=== PATIENT | male | born 1945 | race Caucasian/White ===

== ENCOUNTER 2017-08-20 08:02 | Observation (INO) | payer OTHER ==
[~2017-08-20] VITALS: Ht 167.6 cm; Wt 83.9 kg
[~2017-08-20 08:02] MED LIST: CRESTOR5 M1 PO; LOSARTAN POTAS100 M1 PO; MAGNESIUM400 M1 PO; VITAMIN D2000 UNIT PO
[2017-08-20 18:00] VITALS: BP 110/62
--- NOTE | 2017-08-20 18:20 | PN- Student ---
Jacob Joel 08/20/171816: Subjective Subjective: PT states he has 6/10 pain at the incision site on ventral aspect of neck. He does not have any questions or complaints at this time. Family is at BS. Denies: H/A, vision changes, SOB, chest pain, abd pain, n/v/d, paresthesias or syncope. Objective Objective: GEN: Pt lying supine in bed, NAD. A+Ox4. Speaks in quiet voice and with few words HEENT: Island dressing on ventral aspect of neck. CDI. RESP: Fair resp effort 2/2 pain with movement. CTAB CARDIO: RRR, no MRG, S1/S2 audible. cap refill <2 sec. Pulses palpable throughout. ABD: Soft, NTND. No bowel sounds audible. MUSC: 5/5 strength. Bilateral LE + compression devices. Nontender, nonedematous. NEURO: Sensation intact throughout. Results Results: Laboratory Tests 08/20/17 1520: Calcium 10.2, Albumin 3.5 08/20/17 1430: PTH Intact 72.1 08/20/17 1410: PTH Intact 304.9 H 08/20/17 1355: PTH Intact 330.6 H 08/20/17 1341: PTH Intact 410.4 H 08/20/17 1230: PTH Intact 339.9 H Assessment/Plan Assessment: PT is a 72yo caucasain male POD-0 s/p parathryoidectomy. He appears to be recovering well from the procedure. He has not had any PO fluids/food, denies flatus/BM or urination. Patient speaks in only a few words and is very soft spoken. No seymour/No drains. No questions or concerns at this time. Plan: Continue IVF and pain meds as ordered. 9:30 pm Ca+ and albumin levels ordered. OOB ambulation. DVT prophylaxis. Start clear liquid diet as tolerated. PT consult (speech path consult?) Kristel Pino 08/20/172033: Subjective Subjective: some discomfort, bernie clears, no dysphagia, just took pain pill. due to void postop Objective Objective: NECK: incision dressed- cdi. ttp at incision. no ecchymosis, no erythema, no hematoma. Assessment/Plan Plan: Await void, then HL. corrected Ca 10.6 postop, recheck at 9:30pm and 3:30am. OOB. continue clears. no speech tx needed at this time. prn pain meds. titrate o2
--- NOTE | 2017-08-20 20:53 | Admission Core Measures ---
Acute Coronary Syndrome (CM) ACS Core Measures Acute Coronary Syndrome Diagnosis No Congestive Heart Failure (NEW) CHF Core Measures Congestive Heart Failure Diagnosis No Cerebrovascular Accident (NEW) CVA Core Measures CVA/TIA Diagnosis No Venous Thromboembolism VTE Core Vania (View Protocol) VTE Risk Factors Surgery No Mechanical VTE Prophylaxis d/t N/A MechProphylax Ordered No VTE Pharm Prophylaxis d/t Surgical Contraindication Problem List As ranked by this Provider includes Assessment & Plan 1. Hyperparathyroidism HOME MEDS Home Med List Cholecalciferol (Vitamin D3) (Vitamin D) 2,000 UNIT CAPSULE 1 CAP PO DAILY SUPPLEMENT (Reported) Losartan Potassium 100 MG TABLET 1 TAB PO DAILY BP (Reported) Magnesium Oxide (Magnesium) 400 MG CAPSULE 1 CAP PO DAILY SUPPLEMENT ( Reported) Rosuvastatin Calcium (Crestor) 5 MG TABLET 1 TAB PO QPM CHOLESTEROL (Reported )
[2017-08-20] MEDS ORDERED: PERCOCET 5-3251 EACH PO (20:54)
--- NOTE | 2017-08-20 20:57 | Patient Discharge Instructions ---
Discharge Instructions General Discharge Information You were seen/treated for: hyperparathyroidism post-op urinary retention requiring straight cath. You had these procedures: parathyroidectomy Watch for these problems: fever>101, worsening pain, redness/drainage from incision, difficulty swalling, severe swelling or bruising of neck Other wound care: Keep wound clean and dry. You may remove dresing and shower 48hr after surgery. Do not soak wound- no tub baths/swimming. Watch for signs of infections ( redness, drainage) Special Instructions: Please have labs drawn on Wednesday. See attached lab slip. Diet Continue normal diet: Yes Additional DIET Information: Don't forget to take your Vitamin D supplement. Activity Full Activity/No Limits: No Activity Self Limited: Yes Pounds, do NOT lift more than: 5 Other activity limits: No strenuous activity or heavy lifting, pushing or pulling. Avoid repetitive bending. No driving when using pain meds. Acute Coronary Syndrome Inclusion Criteria At DC or during hospital stay patient has or had the following: ACS DIAGNOSIS No Discharge Core Measures Meds if any: Prescribed or Continued at Discharge Meds if any: NOT Prescribed or Continued at Discharge Congestive Heart Failure Inclusion Criteria At DC or during hospital stay patient has or had the following: CHF DIAGNOSIS No Discharge Core Measures Meds if any: Prescribed or Continued at Discharge Meds if any: NOT Prescribed or Continued at Discharge Cerebrovascular accident Inclusion Criteria At DC or during hospital stay patient has or had the following: CVA/TIA Diagnosis No Discharge Core Measures Meds if any: Prescribed or Continued at Discharge Meds if any: NOT Prescribed or Continued at Discharge Venous thromboembolism Inclusion Criteria VTE Diagnosis No VTE Type NONE VTE Confirmed by (Test) NONE Discharge Core Measures - Per Current guidelines, there needs to be overlap - treatment for the first 5 days of Warfarin therapy. - If discharged on Warfarin prior to 5 days of - overlap therapy, the patient will need to be - assessed for post discharge needs including - *Post discharge parental anticoagulation - *Warfarin and/or parental anticoagulation education - *Follow up date to check INR post discharge At least 5 days overlap therapy as Inpatient No Meds if any: Prescribed or Continued at Discharge Note: Overlap Therapy is Warfarin and Anticoagulant Meds if any: NOT Prescribed or Continued at Discharge
[2017-08-20 22:38] VITALS: BP 104/60
[2017-08-21 06:48] VITALS: BP 110/64
[2017-08-21 10:07] LABS: ABSOLUTE BASOPHIL COUNT 0 /CUMM (0.0-0.2); ABSOLUTE EOSINOPHIL COUNT 0.1 /CUMM (0.0-0.7); ABSOLUTE GRANULOCYTE CT 5.7 /CUMM (1.4-6.5); ABSOLUTE LYMPH COUNT 1.9 /CUMM (1.2-3.4); ABSOLUTE MONOCYTE COUNT 0.6 /CUMM (0.10-0.60); BASOPHIL % 0.4 % (0.0-2.0); EOSINOPHIL % 1.4 % (0-5); GRANULOCYTE % 68.8 % (42.2-75.2); MEAN CORPUSCULAR HGB 27.5 PG (27.0-31.0); MEAN CORPUSCULAR HGB CONC 32.5 G/DL (33.0-37.0); MEAN CORPUSCULAR VOLUME 84.6 FL (80.0-94.0); MEAN PLATELET VOLUME 9.2 FL (7.4-10.4); PLATELET COUNT 165 /CUMM (130-400); RBC DISTRIBUTION WIDTH 13.3 % (11.5-14.5); RED BLOOD CELL CT 4.49 /CUMM (4.70-6.10); WHITE BLOOD CELL COUNT 8.3 /CUMM (4.8-10.8)
[2017-08-21 14:34] VITALS: BP 118/62
--- NOTE | 2017-08-21 15:20 | PN- General Surgery ---
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 He may need IV calcium supplementation depending on the level.
--- NOTE | 2017-08-21 15:23 | PN- General Surgery ---
See Addendum Subjective Subjective: Postop parathyroidectomy neck incision is a little sore otherwise tolerating some diet no difficulty breathing no perioral numbness however he has been straight cathed 2 times for urinary retention, he does see a urologist Objective Vital Signs and I&Os I reviewed Vital Signs Date Time Temp Pulse Resp B/P B/P Pulse O2 O2 Flow FiO2 Mean Ox Delivery Rate 08/21 1434 97.9 85 20 118/62 94 08/21 0931 82 130/80 08/21 0648 98.4 80 18 110/64 94 Nasal Cannula 08/21 0000 Nasal 2.0L Cannula 08/20 2237 94 Nasal 2.0L Cannula 08/20 2237 98.1 86 20 104/60 98 Nasal Cannula 08/20 1800 98.0 86 20 110/62 96 Nasal 2.0L Cannula I reviewed Intake & Output 08/21 1600 08/21 0800 08/21 0000 08/20 1600 08/20 0800 08/20 0000 Intake Total 1100 475 Output Total 1000 1250 Balance -1000 -150 475 Intake, IV 600 375 Intake, Oral 500 100 Output, Urine 1000 1250 Patient 185 lb 185 lb Weight Physical Exam: Constitutional: no acute distress no pain Eyes: sclera anicteric ENMT: moist mucous membranes No neck hematoma, Chvostek's negative Cardiovascular: S1-S2 no murmurs no peripheral edema Respiratory: clear to auscultation with normal respiratory effort and no intercostal retractions GI: abdomen soft nontender nondistended Extremities / lymphatics: free range of motion no peripheral edema Skin: no jaundice no rashes warm, nondiaphoretic Psychiatric: mood and affect are appropriate and alert and oriented to person place and time Current Medications: I reviewed Current Medications Sig/Key Start time Last Medication Dose Route Stop Time Status Admin Atorvastatin Calcium 20 MG 1700 08/21 1700 AC PO Atorvastatin Calcium 20 MG 1700 08/20 1700 DC PO Cefazolin Sodium 2 GM Q8H 08/20 2029 DC 08/21 N/A 1 UNIT IV 08/21 458 0412 Cholecalciferol 2,000 IU DAILY 08/21 1000 DC PO Cholecalciferol 2,000 IU DAILY 08/21 1000 AC 08/21 PO 0931 Dextrose/Sodium 1,000 ML Q13H 08/20 1815 DC 08/21 Chloride IV 01/2013 Docusate Sodium 100 MG BID 08/20 2199 AC 08/21 PO 0931 Heparin Sodium 5,000 UNIT Q8 08/20 2199 DC (Porcine) SC Heparin Sodium 5,000 UNIT Q8 08/20 2200 AC 08/21 (Porcine) SC 1520 Hydromorphone HCl 2 MG .STK-MED ONE 08/20 1541 DC IM 08/20 1542 Losartan Potassium 100 MG DAILY 08/21 1000 DC PO Losartan Potassium 100 MG DAILY 08/21 1000 AC 08/21 PO 0931 Magnesium Oxide 400 MG DAILY 08/21 1000 DC PO Magnesium Oxide 400 MG DAILY 08/21 1000 AC 08/21 PO 0931 Morphine Sulfate 2 MG Q4P PRN 08/20 181 AC IV Oxycodone HCl 5 MG Q4 HRS NEEDED PRN 08/20 181 AC PO Oxycodone HCl 10 MG Q4 HRS NEEDED PRN 08/20 1815 AC 08/21 PO 1520 Tamsulosin HCl 0.4 MG DAILY 08/21 1145 AC 08/21 PO 1519 Results Last 48 Hours of Labs: I reviewed Laboratory Tests 08/21 08/21 08/20 08/20 0859 0320 2150 1520 Chemistry Sodium (137 - 145 mmol/L) 140 Potassium (3.5 - 5.1 mmol/L) 3.7 Chloride (98 - 107 mmol/L) 103 Carbon Dioxide (22 - 30 mmol/L) 26 Anion Gap (5 - 16) 11 BUN (9 - 20 mg/dL) 16 Creatinine (0.7 - 1.2 mg/dL) 0.7 Estimated GFR (>60 ml/min) > 60 BUN/Creatinine Ratio (7 - 25 %) 22.9 Calcium (8.4 - 10.2 mg/dL) 9.1 9.7 10.2 Albumin (3.5 - 5.0 g/dL) 3.4 L 3.8 3.5 Hematology CBC w Diff NO MAN DIFF REQ WBC (4.8 - 10.8 /CUMM) 8.3 RBC (4.70 - 6.10 /CUMM) 4.49 L Hgb (14.0 - 18.0 G/DL) 12.3 L Hct (42 - 52 %) 38.0 L MCV (80.0 - 94.0 FL) 84.6 MCH (27.0 - 31.0 PG) 27.5 MCHC (33.0 - 37.0 G/DL) 32.5 L RDW (11.5 - 14.5 %) 13.3 Plt Count (130 - 400 /CUMM) 165 MPV (7.4 - 10.4 FL) 9.2 Gran % (42.2 - 75.2 %) 68.8 Lymphocytes % (20.5 - 51.1 %) 22.5 Monocytes % (1.7 - 9.3 %) 6.9 Eosinophils % (0 - 5 %) 1.4 Basophils % (0.0 - 2.0 %) 0.4 Absolute Granulocytes (1.4 - 6.5 /CUMM) 5.7 Absolute Lymphocytes (1.2 - 3.4 /CUMM) 1.9 Absolute Monocytes (0.10 - 0.60 /CUMM) 0.6 Absolute Eosinophils (0.0 - 0.7 /CUMM) 0.1 Absolute Basophils (0.0 - 0.2 /CUMM) 0 08/20 08/20 08/20 08/20 08/20 1430 1410 1355 1341 1230 Chemistry PTH Intact (18.4 - 80.1 pg/ML) 72.1 304.9 H 330.6 H 410.4 H 339.9 H Assessment/Plan Assessment/Plan Patient has done well for parathyroid surgery his calcium is still normal after several checks will discharge home pending improved urine output also discussed case percent implementation advisor he is to continue his vitamin D supplementation and we will give him a lab slip to check his calcium as an outpatient in the next few days Core Measures Venous Thromboembolism VTE Risk Factors Surgery No Mechanical VTE Prophylaxis d/t N/A MechProphylax Ordered No VTE Pharm Prophylaxis d/t Surgical Contraindication
[2017-08-21 22:11] VITALS: BP 120/62
[2017-08-22 06:53] VITALS: BP 140/70
[2017-08-22] MEDS ORDERED: DOCUSATE SODIU100 M3 PO (09:05)
[2017-08-22] MEDS ORDERED: FLOMAX0.4 M1 PO (09:05)
--- NOTE | 2017-08-22 09:13 | PN- General Surgery ---
Subjective Subjective: No complaints. Pain controlled. Reports urinated 300 mls this morning, without need for straight caths overnight. Flomax started yesterday, and reportedly sees "yearly". Right arm hematoma stable, without paresthesias. He Denies dizziness. No shortness of breath. No chest pains. Tolerating diet. Objective Vital Signs and I&Os Vital Signs Date Time Temp Pulse Resp B/P B/P Pulse O2 O2 Flow FiO2 Mean Ox Delivery Rate 08/22 0715 98.6 08/22 0653 99.8 84 18 140/70 93 Nasal Cannula 08/21 2211 98.1 89 20 120/62 92 Nasal Cannula 08/21 2151 Nasal 2.0L Cannula 08/21 1434 97.9 85 20 118/62 94 08/21 0931 82 130/80 Intake & Output 08/22 1600 08/22 0800 08/22 0000 08/21 1600 08/21 0800 08/21 0000 Intake Total 486 601 7574 1100 475 Output Total 4934 819 9335 1250 Balance -800 -400 175 -150 475 Intake, IV 375 600 375 Intake, Oral 557 597 9456 500 100 Output, Urine 1037 070 9303 1250 Patient 185 lb Weight Physical Exam: General - alert & oriented x 3. comfortable. no acute distress. Neck - dressing c/d/i. no hematoma. no drain. Lungs - clear bilaterally. no w/r/r. Cardiac - s1s2. reg. Abdomen - soft. nontender. Extremities - warm bilaterally. right arm with some bruising but nvi. calves soft and nontender b/l. Current Medications: Current Medications Sig/Key Start time Last Medication Dose Route Stop Time Status Admin Atorvastatin Calcium 20 MG 1700 08/21 1700 AC 08/21 PO 1706 Cholecalciferol 2,000 IU DAILY 08/21 1000 DC PO Cholecalciferol 2,000 IU DAILY 08/21 1000 AC 08/21 PO 0931 Dextrose/Sodium 1,000 ML Q13H 08/20 1815 DC 08/21 Chloride IV 08/21 2013 0608 Docusate Sodium 100 MG BID 08/20 2200 AC 08/21 PO 211 Heparin Sodium 5,000 UNIT Q8 08/20 2200 AC 08/22 (Porcine) SC 0648 Losartan Potassium 100 MG DAILY 08/21 1000 DC PO Losartan Potassium 100 MG DAILY 08/21 1000 AC 08/21 PO 0931 Magnesium Oxide 400 MG DAILY 08/21 1000 DC PO Magnesium Oxide 400 MG DAILY 08/21 1000 AC 08/21 PO 0931 Morphine Sulfate 2 MG Q4P PRN 08/20 1814 AC IV Oxycodone HCl 5 MG Q4 HRS NEEDED PRN 08/20 181 AC PO Oxycodone HCl 10 MG Q4 HRS NEEDED PRN 08/20 181 AC 08/21 PO 2110 Tamsulosin HCl 0.4 MG DAILY 08/21 1145 AC 08/21 PO 1519 Results Last 48 Hours of Labs: Laboratory Tests 08/21 08/21 08/20 08/20 0859 0320 2150 1520 Chemistry Sodium (137 - 145 mmol/L) 140 Potassium (3.5 - 5.1 mmol/L) 3.7 Chloride (98 - 107 mmol/L) 103 Carbon Dioxide (22 - 30 mmol/L) 26 Anion Gap (5 - 16) 11 BUN (9 - 20 mg/dL) 16 Creatinine (0.7 - 1.2 mg/dL) 0.7 Estimated GFR (>60 ml/min) > 60 BUN/Creatinine Ratio (7 - 25 %) 22.9 Calcium (8.4 - 10.2 mg/dL) 9.1 9.7 10.2 Albumin (3.5 - 5.0 g/dL) 3.4 L 3.8 3.5 Hematology CBC w Diff NO MAN DIFF REQ WBC (4.8 - 10.8 /CUMM) 8.3 RBC (4.70 - 6.10 /CUMM) 4.49 L Hgb (14.0 - 18.0 G/DL) 12.3 L Hct (42 - 52 %) 38.0 L MCV (80.0 - 94.0 FL) 84.6 MCH (27.0 - 31.0 PG) 27.5 MCHC (33.0 - 37.0 G/DL) 32.5 L RDW (11.5 - 14.5 %) 13.3 Plt Count (130 - 400 /CUMM) 165 MPV (7.4 - 10.4 FL) 9.2 Gran % (42.2 - 75.2 %) 68.8 Lymphocytes % (20.5 - 51.1 %) 22.5 Monocytes % (1.7 - 9.3 %) 6.9 Eosinophils % (0 - 5 %) 1.4 Basophils % (0.0 - 2.0 %) 0.4 Absolute Granulocytes (1.4 - 6.5 /CUMM) 5.7 Absolute Lymphocytes (1.2 - 3.4 /CUMM) 1.9 Absolute Monocytes (0.10 - 0.60 /CUMM) 0.6 Absolute Eosinophils (0.0 - 0.7 /CUMM) 0.1 Absolute Basophils (0.0 - 0.2 /CUMM) 0 08/20 08/20 08/20 08/20 08/20 1430 1410 1355 1341 1230 Chemistry PTH Intact (18.4 - 80.1 pg/ML) 72.1 304.9 H 330.6 H 410.4 H 339.9 H Assessment/Plan Assessment/Plan This 72 year old male with hx htn, hld, ?bph, is POD#2 s/p RLL parathyroidectomy , post-op urinary retention requiring straight catheterization x 2 - which seems better with starting flomax yesterday tolerating diet pain controlled continue flomax IST oob/ambulating well extended observation due to urinary issues yesterday, which have improved with flomax d/c home today prescription given to check serum calcium / albumin tomorrow prescription given to continue flomax and f/u in 1-2 weeks will d/w Core Measures Venous Thromboembolism VTE Risk Factors Surgery No Mechanical VTE Prophylaxis d/t N/A MechProphylax Ordered No VTE Pharm Prophylaxis d/t Surgical Contraindication
[2017-08-22 09:56] VITALS: BP 140/70
--- NOTE | 2017-08-25 19:07 | Operative Report ---
Operative/Inv Procedure Report Surgery Date: 08/20/17 Name of Procedure: excision of right inferior parathyroid gland (adenoma) using intraoperative PTH assay Pre-Operative Diagnosis: primary HPTH ism Post-Operative Diagnosis: same Estimated Blood Loss: scant Surgeon/Road Supervisor Of Engines: Marly LAWSON,Matthew BOLANOS Anesthesia: general endotracheal tube Operative/Procedure Note Note: We had gone over preoperative imaging sestamibi and ultrasound describing a 1.8 cm mass. Patient was placed on the OR table supine, over the thyroid bar, after successful induction of general anesthesia and the timeouts, and setting up the NIMS electrodes for monitoring, the patient's neck from chin to chest were clipped prepped and draped in the usual sterile fashion. A PTH level was drawn at this time. We had already marked a skin crease near the cricoid in Same Day, and then infiltrated local anesthetic and then made this incision with a 15 blade, extending between the medial borders of the sternocleidomastoid muscles, and this incision was slightly off centeri favoring the right. The incision was deepened through the subcutaneous fat and subplatysmal flaps, preserving the underlying anterior jugular veins, were made superiorly to the thyroid cartilage and inferiorly not quite to the sternal notch. The midline was identified between the strap muscles and opened vertically and then using an Allis clamp first, the sternohyoid and then the sternal thyroid muscles were and then retracted laterally to the right, off the thyroid towards the carotid sheath. At that deep lateral extent we searched for the parathyroid gland I saw a rounded nodule surrounded by fat and was not that large clamps at the level of the inferior pole on the right I dissected circumferentially preserving the blood supply and then before excising it we had anesthesia draw a PTH, then we excised it and sent it to pathology, and mingo another level. So far the numbers were between 330 and 410. The pathologist called in to say it looked grossly like fat which correlated with the number not dropping so we persisted the search and found an obvious adenoma deeper along the tracheoesophageal groove, with a single pedicle, feeling confident that this was the one, we excised it sending to pathology and mingo another lab 10 minutes later, which came back 72, at least an 80% drop, so we were done. Note that we kept the dissection close to the gland avoiding exposing touching the recurrent nerve . We checked for hemostasis and then closed by first reapproximating the strap muscles over the trachea in the middle paying care not to injure those jugular veins on either side, and then the platysma was reapproximated with a running 3-0 Vicryl suture as well, then the skin was reapproximated with a running subcuticular 4-0 Biosyn suture followed by Mastisol Steri-Strips Telfa and Tegaderm. Estimated blood loss was minimal lap and sponge counts were correct wound expectancy was clean, IV fluids crystalloid, complications none, patient tolerated the procedure well was awakened extubated and returned to the recovery room in satisfactory condition where once more awake, was able to phonate without any significant hoarseness.
== END 2017-08-22 10:42 ==
LOC: STS 08:02 → PACUH 15:00 → ENRESERV 15:58 → ENTRNSPT 17:01 → CMPTRNSPT 17:34 → 2NA 17:38
PROVIDERS: Physician Assistant Surgical
DX: E21.0 Primary hyperparathyroidism (principal); I10 Essential (primary) hypertension; G47.33 Obstructive sleep apnea (adult) (pediatric); R42 Dizziness and giddiness
CPT/HCPCS: 1255; 1328; 1425; 1530; 1748; 36415; 82436; 88305; 96372; 96374; C9399; G0378; J0131; J0690; J1644; J2250; J3490; J7042

== ENCOUNTER 2018-01-01 08:24 | Observation (INO) | payer OTHER ==
[~2018-01-01] VITALS: Ht 170.2 cm; Wt 83.9 kg
[~2018-01-01 08:24] MED LIST changes: +DOCUSATE SODIU100 M3 PO; +FLOMAX0.4 M1 PO; +PERCOCET 5-3251 EACH PO
--- NOTE | 2018-01-01 08:51 | ED AMS/SEIZURE/WEAK/DIZZY ---
History of Present Illness General Chief Complaint: General Adult Stated Complaint: TICK BITE/? FB STILL REMAINING/NAUSEA/WEAKNESS Source: patient, family, old records Exam Limitations: no limitations Vital Signs & Intake/Output Vital Signs & Intake/Output Vital Signs Date Time Temp Pulse Resp B/P B/P Pulse O2 O2 Flow FiO2 Mean Ox Delivery Rate 01/01 1019 98.0 64 18 132/70 97 Room Air 01/01 0833 97.1 60 18 161/74 96 Room Air Allergies Coded Allergies: NO KNOWN ALLERGIES (08/19/17) Reconcile Medications Cholecalciferol (Vitamin D3) (Vitamin D) 2,000 UNIT CAPSULE 1 CAP PO DAILY SUPPLEMENT (Reported) Docusate Sodium 100 MG CAPSULE 100 MG PO BID PRN CONSTIPATION stool softener. hold for loose bms. Losartan Potassium 100 MG TABLET 1 TAB PO DAILY BP (Reported) Magnesium Oxide (Magnesium) 400 MG CAPSULE 1 CAP PO DAILY SUPPLEMENT ( Reported) Rosuvastatin Calcium (Crestor) 5 MG TABLET 1 TAB PO QPM CHOLESTEROL (Reported ) Tamsulosin HCl (Flomax) 0.4 MG CAP.ER.24H 0.4 MG PO DAILY urinary retention / bph Triage Note: PT STATES THAT HE HAS A HISTORY OF VERTIGO AND THAT HE WOKE THIS AM HE WAS DIZZY/NAUSEA /SWEATY, DENIES CP/SOB, ALSO STATES THAT HE HAD A TICK ON HIM LAST PM AND HE REMOVED IT BUT THINKS THE HEAD IS STILL IN Triage Nurses Notes Reviewed? yes HPI: Patient woke up this morning and just felt off balance. Patient denies any room spinning dizziness however he does have a history of vertigo. Patient denies any nausea. Patient states that he fell in a tent pole on the [place] was a fall. Patient denies any chest pain or palpitations. There is no shortness of breath. There is no lightheadedness. Of note patient noticed a tick on him 2 weeks ago and he went to walk in [place] and was given 200 mg doxycycline. Patient noticed another tick on him yesterday. His pulled it out however the head remained. Past History Travel History Traveled to [place] past 21 day No Medical History Any Pertinent Medical History? see below for history Neurological: vertigo Cardiovascular: hypertension, HYPERLIPIDEMIA Respiratory: SLEEP APNEA Gastrointestinal: R INGUINAL HERNIA REPAIR History of MRSA: No History of VRE: No History of CDIFF: No Surgical History Surgical History: non-contributory Psychosocial History What is your primary language Puerto Rican Tobacco Use: Never used ETOH Use: denies use Illicit Drug Use: denies illicit drug use Family History Hx Contributory? No Review of Systems Review of Systems Constitutional: Reports: no symptoms. EENTM: Reports: no symptoms. Respiratory: Reports: no symptoms. Cardiovascular: Reports: no symptoms. GI: Reports: no symptoms. Genitourinary: Reports: no symptoms. Musculoskeletal: Reports: no symptoms. Skin: Reports: no symptoms. Neurological/Psychological: Reports: see HPI. Hematologic/Endocrine: Reports: no symptoms. Immunologic/Allergic: Reports: no symptoms. All Other Systems: Reviewed and Negative Physical Exam Physical Exam General Appearance: well developed/nourished, alert, awake, mild distress Head: atraumatic, normal appearance Eyes: Bilateral: PERRL, EOMI. Ears, Nose, Throat: normal pharynx, normal ENT inspection, hearing grossly normal Neck: normal inspection, supple, full range of motion Respiratory: normal breath sounds, chest non-tender, no respiratory distress, lungs clear Cardiovascular: normal peripheral pulses, bradycardia Gastrointestinal: normal bowel sounds, soft, non-tender, no organomegaly Back: normal inspection, normal range of motion Extremities: normal range of motion, hEAD TICK REMAINED BEHIND LEFT KNEE Neurologic/Psych: no motor/sensory deficits, awake, alert, oriented x 3, normal mood/affect Skin: intact, normal color, warm/dry Core Measures ACS in differential dx? No CVA/TIA Diagnosis No Sepsis Present: No Sepsis Focused Exam Completed? No Progress Differential Diagnosis: arrythmia, benign positional vertigo, drug intoxication, electrolyte imbalance, labrynthitis, Meniere's disease Plan of Care: Orders Procedure Date/time Status Heart Healthy Diet 01/[address] in observation 01/01 1138 Active ED Holding Orders 01/01 1138 Active Vital Signs 01/01 1138 Active Code Status 01/01 1138 Active Add-on Test (ER Only) 01/01 1135 Active Telemetry/Septic Pump Truck Driver 01/01 0851 Active TROPONIN LEVEL 01/01 0851 Complete COMPREHENSIVE METABOLIC PANEL 01/01 0851 Complete CBC WITHOUT DIFFERENTIAL 01/01 0851 Complete EKG 01/01 0851 Active Current Medications Sig/Key Start time Last Medication Dose Stop Time Status Admin Sodium Chloride 1,000 ML BOLUS ONE 01/01 1045 AC 01/01 (Normal Saline 0.9%) 01/01 1144 1047 Laboratory Tests 01/01/18 0909: Anion Gap 9, Estimated GFR > 60, BUN/Creatinine Ratio 25.7 H, Glucose 163 H, Calcium 9.1, Total Bilirubin 0.6, AST 38, ALT 34, Alkaline Phosphatase 103, Troponin I < 0.01, Total Protein 6.5, Albumin 3.8, Globulin 2.7, Albumin/ Globulin Ratio 1.4, CBC w Diff NO MAN DIFF REQ, RBC 5.06, MCV 83.1, MCH 27.6, MCHC 33.2, RDW 14.1, MPV 9.0, Gran % 70.7, Lymphocytes % 22.3, Monocytes % 5.3, Eosinophils % 1.3, Basophils % 0.4, Absolute Granulocytes 4.7, Absolute Lymphocytes 1.5, Absolute Monocytes 0.3, Absolute Eosinophils 0.1, Absolute Basophils 0 Initial ED EKG: SINUS THIERNO, NO STT CHANGES Prior EKG: changed Rhythm Strip: sinus bradycardia Comments: His showed a picture of the tick and it is much larger than the nymph stage. The rest of the tick was removed with tweezers. Dr. Ross has been counseled to. He recommends the patient to remain in the hospital and he will consult. Departure Departure Disposition: STILL A PATIENT Condition: Stable Clinical Impression Primary Impression: Symptomatic bradycardia Referrals: Magnus LAWSON,Pedrito Reyes (PCP/Family) Departure Forms: Customer Survey General Discharge Information Admission Note Documentation of Exam: Documentation of any treatments & extenuating circumstances including Concerns Regarding Discharge (functional status, medication knowledge or non-compliance, living conditions, etc.) that warrant an admission rather than observation: Observation Note Spoke With: Susan Lutz MD Physician Advisor Notified: CHRIS LAWSON,NANNETTE Reyes Place Patient In: Non-ED OBS Care Area Rationale for Observation: My rational for observation is as follows [telemetry monitoring, cardiology evaluation and further treatment, serial enzymes].
[2018-01-01 09:34] LABS: ABSOLUTE BASOPHIL COUNT 0 /CUMM (0.0-0.2); ABSOLUTE EOSINOPHIL COUNT 0.1 /CUMM (0.0-0.7); ABSOLUTE GRANULOCYTE CT 4.7 /CUMM (1.4-6.5); ABSOLUTE LYMPH COUNT 1.5 /CUMM (1.2-3.4); ABSOLUTE MONOCYTE COUNT 0.3 /CUMM (0.10-0.60); BASOPHIL % 0.4 % (0.0-2.0); EOSINOPHIL % 1.3 % (0-5); GRANULOCYTE % 70.7 % (42.2-75.2); HEMATOCRIT 42.1 % (42-52); MEAN CORPUSCULAR HGB 27.6 PG (27.0-31.0); MEAN CORPUSCULAR HGB CONC 33.2 G/DL (33.0-37.0); MEAN CORPUSCULAR VOLUME 83.1 FL (80.0-94.0); PLATELET COUNT 183 /CUMM (130-400); RBC DISTRIBUTION WIDTH 14.1 % (11.5-14.5); RED BLOOD CELL CT 5.06 /CUMM (4.70-6.10); WHITE BLOOD CELL COUNT 6.6 /CUMM (4.8-10.8)
--- NOTE | 2018-01-01 12:14 | History & Physical ---
Itzel LAWSON,[facility] 01/01/18 1214: General Information and HPI MD Statement: I have seen and personally examined SAM MOORE and documented this H&P. The patient is a 72 year old M who presented with a patient stated chief complaint of [dizziness]. 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 Patient was on regular state of health up to yesterday, when he woke up this morning he felt very dizzy, was unable to go to the restroom and looked pale, diaphoresis, nausea but no vomiting. The reported that she never saw him in this way and decided to bring him to ED for evaluation. Patient reported tick bite yesterday on the posterior surface of left knee, tried to remove it with soap and alcohol swab and finally pulled it out however the head remained. Patient also had a tick bite last week and went to a walk-in clinic and was given doxycycline 2 pulse 1 time, had 2 ticks bites last year and was treated with doxycycline however never was tested for Lyme titer. Patient denied any chest pain, palpitation, shortness of breath, weakness, numbness, blurred vision. Denied any skin rash this time however reported ring lesion last year. Patient denied any new medication. Patient follow-up with Dr. Mayen for annual checkup no urological disease, Dr. Wood for history of palpitation, Dr. hammonds for a parathyroid, ophthalmology, Dr. Jeronimo for sleep apnea and primary care physician is Dr. Agudelo. Allergies/Medications Allergies: Coded Allergies: NO KNOWN ALLERGIES (08/19/17) Home Med list Cholecalciferol (Vitamin D3) (Vitamin D) 2,000 UNIT CAPSULE 1 CAP PO DAILY SUPPLEMENT (Reported) Losartan Potassium 100 MG TABLET 1 TAB PO DAILY BP (Reported) Magnesium Oxide (Magnesium) 400 MG CAPSULE 1 CAP PO DAILY SUPPLEMENT ( Reported) Meclizine HCl 12.5 MG TABLET 12.5 MG PO TID PRN Vertigo Rosuvastatin Calcium (Crestor) 5 MG TABLET 1 TAB PO QPM CHOLESTEROL (Reported ) Past History Travel History Traveled to [place] past 21 day No Medical History Neurological: vertigo Cardiovascular: hypertension, HYPERLIPIDEMIA Respiratory: SLEEP APNEA Gastrointestinal: R INGUINAL HERNIA REPAIR History of MRSA: No History of VRE: No History of CDIFF: No Surgical History Surgical History: non-contributory Past Family/Social History Psychosocial History Where do you live? Home Who Do You Live With? spouse Services at Home: None Smoking Status: Former Smoker ETOH Use: 2 glasses of wine daily Illicit Drug Use: denies illicit drug use Review of Systems Review of Systems Constitutional: Reports: see HPI. EENTM: Denies: blurred vision, double vision. Cardiovascular: Denies: chest pain, palpitations. Respiratory: Denies: cough, short of breath. GI: Reports: nausea. Denies: abdominal pain, constipation, vomiting. Genitourinary: Denies: dysuria, hematuria. Musculoskeletal: Denies: back pain, joint pain, joint swelling, muscle pain, muscle stiffness, neck pain. Skin: Denies: rash. Neurological/Psychological: Denies: ataxia, confusion, dementia, headache, numbness. Hematologic/Endocrine: Denies: bleeding. Exam & Diagnostic Data Last 24 Hrs of Vital Signs/I&O Vital Signs Date Time Temp Pulse Resp B/P B/P Pulse O2 O2 Flow FiO2 Mean Ox Delivery Rate 01/01 1341 98.2 57 20 150/90 96 Room Air 01/01 1251 98.0 58 20 145/68 98 Room Air 01/01 1019 98.0 64 18 132/70 97 Room Air 01/01 0833 97.1 60 18 161/74 96 Room Air Intake & Output 01/01 1600 01/01 0800 01/01 0000 Intake Total 1000 Output Total Balance 1000 Intake, IV 1000 Patient 83.915 kg Weight Physical Exam General Appearance Alert, Oriented X3, Cooperative, No Acute Distress Skin No Rashes, No Breakdown, erythema at the tick bite site on the posterior serface of left knee Skin Temp/Moisture Exam: Warm/Dry HEENT Atraumatic, PERRLA, EOMI, Mucous Membr. moist/pink Neck Supple Cardiovascular Regular Rate, Normal S1, Normal S2, No Murmurs Lungs Clear to Auscultation, Normal Air Movement Abdomen Normal Bowel Sounds, Soft, No Tenderness Neurological Normal Speech, Strength at 5/5 X4 Ext, Normal Tone, Sensation Intact, Cranial Nerves 3-12 NL Extremities No Clubbing, No Cyanosis, No Edema, Normal Pulses Assessment/Plan Assessment: Patient is 72-year-old male with past medical history significant for hypertension, obstructive sleep apnea on CPAP, parathyroid adenoma status post right inferior parathyroidectomy, vertigo who presented to ED with chief complain of dizziness associated with nausea, diaphoresis this morning. Patient was found to have heart rate of 60, lowest 40-45 bpm. Patient continues to report dizziness on standing. Dizziness can be attributed to bradycardia however given the sudden onset of his symptoms we want to rule out other causes specifically TIA of posterior circulation. Lyme disease should be ruled out given history of multiple tick bites and ring lesion last year. Also in the setting of parathyroidectomy would like to rule out any hypothyroidism. Plan Observe on telemetry floor Vitals every shift Repeat troponin and EKG Obtain Lyme titer Orthostatic measurement CTA head and neck TSH Cardiac consultation Echocardiogram PT evaluation Bedside swallowing evaluation was done Start diet heart healthy DVT prophylaxis Lovenox Code full As Ranked By This Provider Problem List: 1. Vertigo 2. Symptomatic bradycardia Core Measures/Misc (04/11) Acute Coronary Syndrome ACS Diagnosis: No Congestive Heart Failure Congestive Heart Failure Diagnosis No Cerebrovascular Accident CVA/TIA Diagnosis: No VTE (View Protocol) VTE Risk Factors Age>40 No Mechanical VTE Prophylaxis d/t N/A MechProphylax Ordered No VTE Pharm Prophylaxis d/t NA PharmProphylax ordered Sepsis (View protocol) Sepsis Present: No If YES complete Sepsis Event Note If YES complete Sepsis Event Note Observation Initial Note - I have personally examined SAM MOORE on 01/01/18 at 1431. The disposition of SAM MOORE is uncertain at this time and before a determination can be made, he requires a period of observation for the following reasons [dizziness, bradycardia] Susan Lutz MD 01/01/18 1409: Core Measures/Misc (04/11) Sepsis (View protocol) If YES complete Sepsis Event Note If YES complete Sepsis Event Note Attending MD Review Statement Attending Statement Attending MD Statement: examined this patient, discuss w/resident/PA/CORRECTIONAL CAPTAIN, agreed w/resident/PA/CORRECTIONAL CAPTAIN, reviewed EMR data (avail), discussed with nursing, discussed with case mgmt, amended to note Attending Assessment/Plan: 72-year-old male history of sleep apnea, hypertension recently diagnosed with vertigo a few weeks ago presented to the emergency room with sudden onset of dizziness and unsteady gait. Arrived emergency room hemodynamically stable. In the ER he was found to be in sinus bradycardia. Was referred to the medical service for further management. He is alert and oriented 3. Conversant appropriately. Reports that in October he had sudden onset of dizziness with sensation of the room spinning. He was seen by his primary care provider referred for physical therapy. Reports her symptoms improved. Symptoms began suddenly today. He denies any tinnitus. Denies any spinning sensation but states that he is very unsteady on his feet and feels like he is going to fall. Denies chest pain. Denies palpitations. Denies shortness of breath. He has history of repeated tick bites including recently. Apparently a tick was removed from his body today. General appearance: Well-developed and not in any acute distress. HEENT: Anicteric, no pallor, pupils equal and reactive. Mild horizontal nystagmus. Neck: Supple with no jugular venous distention. Heart: S1-S2 regular with no audible murmur. Lungs: Adequate and symmetric air entry bilaterally with no added sounds. Abdomen: Nondistended with normal bowel sounds. Soft, nontender with no palpable masses. Extremities: No pedal edema. No cyanosis. Skin: Intact Neurologic: No gross focal neurologic deficit other than nystagmus noted above. Problems: 1. Sudden onset dizziness 2. Bradycardia 3. History of hypertension. Plan: -Observation status on the telemetry unit. -In view of his nystagmus and sudden onset of symptoms would recommend CT angiogram to rule out posterior circulation infarct. Does not appear that His dizziness is related to his bradycardia. -Check orthostatic vitals. -Begin patient on meclizine 12.5 g orally 3 times a day. Physical therapy consultation. -Obtain echo cardiac cardiology consultation. Check Lyme serology. Check TSH level.
[2018-01-01 13:41] VITALS: BP 150/90
--- NOTE | 2018-01-01 14:44 | Cons- Cardiology ---
General Information and HPI Consulting Request Date of Consult: 01/01/18 Requested By: Susan Lutz MD Reason for Consult: Dizziness and bradycardia. Source of Information: patient, old records Exam Limitations: no limitations History of Present Illness: Mr. Antione Melendez is a 72-year-old male with a history of hypertension, dyslipidemia, obstructive sleep apnea on CPAP, parathyroid adenoma s/p right inferior parathyroidectomy, and vertigo who presented to the ED with complaints of dizziness associated with nausea and diaphoresis this morning. Mr. Melendez reports being in his usual state of health yesterday, but when he awoke this a.m. he felt very dizzy, was very unsteady, unable to go to the bathoom and, according to his , appeared pale and diaphoretic. This was unlike his vertigo and that there was no "spinning" of the objects around him, which he typically experiences with bouts of vertigo. Being alarmed, his brought him to the ED for evaluation and management. The patient discovered a tick yesterday on the posterior aspect of his left knee. His made several attempts to remove it, but eventually pulled it off leaving head remnants. He also discovered a tick last week and sought evaluation at a walk-in clinic where he was prescribed doxycycline. He also reported discovering two ticks and a rash last year which were also treated with doxycycline. He states he was not tested for Lyme disease. He denies any recent chest discomfort, palpitation, shortness of breath, lower extremity edema, skin rash, fever, chills, etc. He has been evaluated for what he describes as heart "vibrations" with Holter monitoring, event monitoring, etc. which he states have been "negative". Other than the antibiotic, he denies any new medications and/or changes in dosages of the medications he has been on chronically. In the ED the tick remnants were removed and he was observed to be in sinus bradycardia. Allergies/Medications Allergies: Coded Allergies: NO KNOWN ALLERGIES (08/19/17) Home Med List: Cholecalciferol (Vitamin D3) (Vitamin D) 2,000 UNIT CAPSULE 1 CAP PO DAILY SUPPLEMENT (Reported) Losartan Potassium 100 MG TABLET 1 TAB PO DAILY BP (Reported) Magnesium Oxide (Magnesium) 400 MG CAPSULE 1 CAP PO DAILY SUPPLEMENT ( Reported) Meclizine HCl 12.5 MG TABLET 12.5 MG PO TID PRN Vertigo Rosuvastatin Calcium (Crestor) 5 MG TABLET 1 TAB PO QPM CHOLESTEROL (Reported ) Review of Systems Review of Systems: A 14 point system review was obtained was noncontributory, other than as above. Past History Travel History Traveled to [place] past 21 day No Medical History Blood Transfusion Hx: No Neurological: vertigo EENT: NONE Cardiovascular: hypertension, HYPERLIPIDEMIA Respiratory: SLEEP APNEA Gastrointestinal: R INGUINAL HERNIA REPAIR Hepatic: NONE Renal: NONE Musculoskeletal: NONE Psychiatric: NONE Endocrine: hyperparathyroidism Blood Disorders: NONE Cancer(s): NONE PETROLEUM PLANT OPERATOR/Reproductive: NONE Surgical History Surgical History: non-contributory Psychosocial History Where Do You Live? Home Who Do You Live With? spouse Services at Home: None Smoking Status: Former Smoker ETOH Use: 2 glasses of wine daily Illicit Drug Use: denies illicit drug use Exam & Diagnostic Data Vital Signs and I&O Vital Signs Date Time Temp Pulse Resp B/P B/P Pulse O2 O2 Flow FiO2 Mean Ox Delivery Rate 01/01 1341 98.2 57 20 150/90 96 Room Air 01/01 1251 98.0 58 20 145/68 98 Room Air 01/01 1019 98.0 64 18 132/70 97 Room Air 01/01 0833 97.1 60 18 161/74 96 Room Air Intake & Output 01/01 1600 01/01 0800 / 0000 12/31 1600 12/31 0800 12/31 0000 Intake Total 1000 Output Total Balance 1000 Intake, IV 1000 Patient 185 lb Weight Physical Exam: Well-developed, well-nourished elderly male no acute distress. Vital signs: See above. HEENT: Normocephalic, atraumatic, EOMI, slightly dry mucous membranes. Neck: No JVD, no bruits. Lungs: Clear to auscultation bilaterally. Heart: S1, S2 with a soft grade 1/6 systolic murmur. No gallop or rub. PMI fifth ICS MCL. Abdomen: Soft, nontender, positive bowel sounds. Extremities: No edema. Erythema posterior aspect left knee. Labs/Bib Results: Laboratory Tests 01/01 909 Chemistry Sodium (137 - 145 mmol/L) 142 Potassium (3.5 - 5.1 mmol/L) 4.0 Chloride (98 - 107 mmol/L) 106 Carbon Dioxide (22 - 30 mmol/L) 26 Anion Gap (5 - 16) 9 BUN (9 - 20 mg/dL) 18 Creatinine (0.7 - 1.2 mg/dL) 0.7 Estimated GFR (>60 ml/min) > 60 BUN/Creatinine Ratio (7 - 25 %) 25.7 H Glucose (65 - 99 mg/dL) 163 H Calcium (8.4 - 10.2 mg/dL) 9.1 Magnesium (1.6 - 2.3 mg/dL) 2.0 Total Bilirubin (0.2 - 1.3 mg/dL) 0.6 AST (17 - 59 U/L) 38 ALT (21 - 72 U/L) 34 Alkaline Phosphatase (< 127 U/L) 103 Troponin I (<0.11 ng/ml) < 0.01 Total Protein (6.3 - 8.2 g/dL) 6.5 Albumin (3.5 - 5.0 g/dL) 3.8 Globulin (1.9 - 4.2 gm/dL) 2.7 Albumin/Globulin Ratio (1.1 - 2.2 %) 1.4 TSH (0.270 - 4.200 uIU/mL) 1.940 Hematology CBC w Diff NO MAN DIFF REQ WBC (4.8 - 10.8 /CUMM) 6.6 RBC (4.70 - 6.10 /CUMM) 5.06 Hgb (14.0 - 18.0 G/DL) 13.9 L Hct (42 - 52 %) 42.1 MCV (80.0 - 94.0 FL) 83.1 MCH (27.0 - 31.0 PG) 27.6 MCHC (33.0 - 37.0 G/DL) 33.2 RDW (11.5 - 14.5 %) 14.1 Plt Count (130 - 400 /CUMM) 183 MPV (7.4 - 10.4 FL) 9.0 Gran % (42.2 - 75.2 %) 70.7 Lymphocytes % (20.5 - 51.1 %) 22.3 Monocytes % (1.7 - 9.3 %) 5.3 Eosinophils % (0 - 5 %) 1.3 Basophils % (0.0 - 2.0 %) 0.4 Absolute Granulocytes (1.4 - 6.5 /CUMM) 4.7 Absolute Lymphocytes (1.2 - 3.4 /CUMM) 1.5 Absolute Monocytes (0.10 - 0.60 /CUMM) 0.3 Absolute Eosinophils (0.0 - 0.7 /CUMM) 0.1 Absolute Basophils (0.0 - 0.2 /CUMM) 0 ESR Westergren (0 - 10 MM) Pending Serology Lyme Disease Antibody Pending Diagnostic Data EKG Results 01/01/18: Sinus bradycardia at 54 bpm, LAD, IVCD, cannot exclude old ASMI. Slower rate when compared to previous tracing from 08/19/2017. Other Results CT head, CTA head/neck 01/01/2018: CT head: No intracranial hemorrhage or large acute infarction. CTA neck: Mild atheromatous changes at the carotid bifurcations resulting in less than 50% stenosis by NASCET criteria. CTA head: No large vessel occlusion or significant stenosis within the intracranial circulation. Assessment/Plan Assessment/Plan [id number] w/ hx HTN, HLD, KAE on CPAP, parathyroid adenoma s/p R inferior parathyroidectomy, & vertigo who presented to ED w/ c/o dizziness assoc w/ nausea, diaphoresis this a.m. w/ a history of recent tick bites and evidence of SB on telemetry in the ED & on and his 12-lead ECG. On review of previous electrocardiograms, it was noted that on a preoperative ( cataract surgery) 12-lead ECG from 04/15/2007, Mr. Melendez was in sinus bradycardia with a heart rate of 48 bpm without any other changes. Reasonable to place on telemetry observation, but he has clearly had bradycardia in the past without associated symptoms. Reasonable to evaluate for other potential etiologies for his sinus bradycardia, which are typically divided into intrinsic and extrinsic causes. Intrinsic causes include: Idiopathic degenerative disorders of the conduction system, chronic ischemia, hypertensive heart disease, cardiomyopathy, inflammatory processes, collagen vascular disease, viral myocarditis, Lyme disease, neuromuscular disorders, and rarely familial sinus node dysfunction. Extrinsic causes typically include medications, underlying autonomically mediated conditions, hypothyroidism, intracranial hypertension, hyperkalemia, etc. Recommendations: * Telemetry observation, orthostatic blood pressure checks, follow-up troponins, repeat ECG w/ further symptoms and in the a.m. * Schedule for echocardiogram to assess left ventricular function. * Check Lyme titers, free T4, TSH, ESR, collagen vascular studies, etc. * Note that head CTA head and neck already scheduled. * DVT prophylaxis. Further recommendations will follow, Thank you. Consult Acknowledgment - Thank you for your consult request.
[2018-01-01 15:00] VITALS: BP 150/90
--- NOTE | 2018-01-01 15:50 | CT SCAN REPORT ---
EXAMINATION: CT ANGIOGRAM NECK WITH CONTRAST CT ANGIOGRAM BRAIN WITH CONTRAST CLINICAL INFORMATION: Rule out posterior circulation infarction. Dizziness and unsteady gait. COMPARISON: None. TECHNIQUE: Test bolus sequences followed by intravenous administration 95 mL of Optiray 320. Helical imaging was performed in the axial plane from the thoracic inlet to the skull vertex. Delayed postcontrast imaging of the head was also performed. The data was processed at the nuclear medicine pet ct technologist workstation for generation of MIP sequences. Angled MIPs and volume rendered reformatted images were also generated at an offline 3D workstation. Stenoses are assessed in accordance with NASCET criteria unless otherwise indicated. DLP: 1705 mGy-cm FINDINGS: Brain: There is no intracranial hemorrhage, large acute infarction, or mass lesion. There is no extra-axial collection. The ventricles are normal in size and configuration without evidence of hydrocephalus. There is mild diffuse brain parenchymal volume loss with prominence of the ventricles and sulci. The paranasal sinuses are clear. The mastoids and middle ear cavities are clear. The extracranial soft tissues are unremarkable. 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 There is no significant stenosis of the great vessel origins. There are atheromatous changes in the bilateral carotid bifurcations extending into the proximal internal carotid arteries resulting in less than 50% stenosis bilaterally. The cervical segments of the vertebral arteries are patent. Head CTA: No intracranial aneurysm is seen. The intracranial internal carotid arteries appear normal. The anterior cerebral artery, anterior communicating artery, and middle cerebral arteries appear normal. The intradural vertebral arteries and basilar artery appear normal. The posterior cerebral arteries appear normal. The posterior communicating arteries are atretic. There are infundibula at the posterior communicating artery origins. Non-vascular findings: There is emphysema at the bilateral lung apices. No consolidation or mass is seen. No mediastinal adenopathy. No mass or fluid collection within the neck. Multilevel degenerative spondylotic changes with approximately mild spinal canal stenosis at C3-C4 related to prominent disc osteophyte complex. IMPRESSION: CT head: No intracranial hemorrhage or large acute infarction. CTA neck: Mild atheromatous changes at the carotid bifurcations resulting in less than 50% stenosis by NASCET criteria. CTA head: No large vessel occlusion or significant stenosis within the intracranial circulation.
[2018-01-01 20:00] VITALS: BP 120/70
[2018-01-01 22:02] VITALS: BP 148/76
[2018-01-02 06:55] VITALS: BP 138/68
[2018-01-02 08:00] LABS: ABSOLUTE BASOPHIL COUNT 0 /CUMM (0.0-0.2); ABSOLUTE EOSINOPHIL COUNT 0.2 /CUMM (0.0-0.7); ABSOLUTE GRANULOCYTE CT 4.5 /CUMM (1.4-6.5); ABSOLUTE LYMPH COUNT 2.6 /CUMM (1.2-3.4); ABSOLUTE MONOCYTE COUNT 0.4 /CUMM (0.10-0.60); BASOPHIL % 0.5 % (0.0-2.0); EOSINOPHIL % 1.9 % (0-5); GRANULOCYTE % 58.5 % (42.2-75.2); HEMATOCRIT 42.8 % (42-52); MEAN CORPUSCULAR HGB 27.5 PG (27.0-31.0); MEAN CORPUSCULAR HGB CONC 33.3 G/DL (33.0-37.0); MEAN CORPUSCULAR VOLUME 82.7 FL (80.0-94.0); MEAN PLATELET VOLUME 9.1 FL (7.4-10.4); PLATELET COUNT 206 /CUMM (130-400); RBC DISTRIBUTION WIDTH 14.1 % (11.5-14.5); RED BLOOD CELL CT 5.17 /CUMM (4.70-6.10); WHITE BLOOD CELL COUNT 7.8 /CUMM (4.8-10.8)
--- NOTE | 2018-01-02 09:05 | PN- Att Addend ---
Attending Addendum Attending Brief Note Patient seen and examined. No issues overnight reported by nursing staff. Remains afebrile and hemodynamically stable. Resting comfortably and not in any acute distress. Telemetry monitoring overnight patient had episodes of sinus bradycardia with heart rate in the 40s. This morning he reports feeling better. He reports feeling less dizzy with position changes. Head CT scan done yesterday showed no evidence of infarct or significant large vessel disease. Vital Signs Date Time Temp Pulse Resp B/P B/P Pulse O2 O2 Flow FiO2 Mean Ox Delivery Rate 01/02 0655 97.5 55 18 138/68 96 01/02 0027 53 95 / 2251 58 96 06/ 2202 97.6 51 18 148/76 94 Room Air 01/01 2000 55 120/70 / 1500 98.2 57 20 150/90 96 01/01 1341 98.2 57 20 150/90 96 Room Air 01/01 1251 98.0 58 20 145/68 98 Room Air 01/01 1019 98.0 64 18 132/70 97 Room Air General appearance: Not in any acute distress. HEENT: Anicteric, no pallor, pupils equal and reactive. Neck: Supple with no jugular venous distention. Heart: S1-S2 regular with no audible murmur. Lungs: Adequate and symmetric air entry bilaterally with no added sounds. Abdomen: Nondistended with normal bowel sounds. Soft, nontender with no palpable masses. Extremities: No pedal edema. No cyanosis. Skin: Intact Laboratory Tests 01/02/18 06: Troponin I < 0.01 01/02/18 06: Anion Gap 11, Estimated GFR > 60, BUN/Creatinine Ratio 16.7, CBC w Diff NO MAN DIFF REQ, RBC 5.17, MCV 82.7, MCH 27.5, MCHC 33.3, RDW 14.1, MPV 9.1, Gran % 58.5, Lymphocytes % 33.8, Monocytes % 5.3, Eosinophils % 1.9, Basophils % 0.5, Absolute Granulocytes 4.5, Absolute Lymphocytes 2.6, Absolute Monocytes 0.4, Absolute Eosinophils 0.2, Absolute Basophils 0 01/01/18 0909: Anion Gap 9, Estimated GFR > 60, BUN/Creatinine Ratio 25.7 H, Glucose 163 H, Calcium 9.1, Magnesium 2.0, Total Bilirubin 0.6, AST 38, ALT 34, Alkaline Phosphatase 103, Troponin I < 0.01, Total Protein 6.5, Albumin 3.8, Globulin 2.7 , Albumin/Globulin Ratio 1.4, TSH 1.940, CBC w Diff NO MAN DIFF REQ, RBC 5.06, MCV 83.1, MCH 27.6, MCHC 33.2, RDW 14.1, MPV 9.0, Gran % 70.7, Lymphocytes % 22.3, Monocytes % 5.3, Eosinophils % 1.3, Basophils % 0.4, Absolute Granulocytes 4.7, Absolute Lymphocytes 1.5, Absolute Monocytes 0.3, Absolute Eosinophils 0.1, Absolute Basophils 0, ESR Westergren 1, Lyme Disease Antibody Pending Problems: 1. Dizziness; likely related to her vertigo. Currently improved with meclizine. 2. Bradycardia; appears to be chronic. Does not appear related to his dizziness. 3. Hypertension Plan: -Follow-up echocardiogram. Patient and are requested to consult their sales relationship manager Dr. Douglas prior to discharge. Patient apparently has had extensive workup for palpitations in the past including Holter monitoring. -Continue meclizine [id number] for his vertigo. Recommend physical therapy evaluation.
[2018-01-02] MEDS ORDERED: MECLIZINE HCL12.5 M1 PO (10:48)
--- NOTE | 2018-01-02 10:59 | PN- Housestaff ---
Subjective Follow-up For: Bradycardia, dizziness Tele-Events Since Last Visit: Sinus rhythm, 4090 Subjective: No overnight events. Patient is very worried that his dizziness is related to his heart. He is requesting to speak to the salary and wage administrator. He says he feels better with the meclizine now. He has no chest pain or shortness of breath. Review of Systems Constitutional: Reports: no symptoms. EENTM: Reports: no symptoms. Cardiovascular: Reports: see HPI. Respiratory: Reports: no symptoms. Gastrointestinal: Reports: no symptoms. Genitourinary: Reports: no symptoms. Musculoskeletal: Reports: no symptoms. Skin: Reports: no symptoms. Neurological/Psychological: Reports: no symptoms. Hematologic/Endocrine: Reports: no symptoms. Immunologic/Allergic: Reports: no symptoms. Objective Last 24 Hrs of Vital Signs/I&O Vital Signs Date Time Temp Pulse Resp B/P B/P Pulse O2 O2 Flow FiO2 Mean Ox Delivery Rate 01/02 0655 97.5 55 18 138/68 96 01/02 0027 53 95 01/01 2251 58 96 01/01 2202 97.6 51 18 148/76 94 Room Air 01/01 2000 55 120/70 01/01 1500 98.2 57 20 150/90 96 01/01 1341 98.2 57 20 150/90 96 Room Air 01/01 1251 98.0 58 20 145/68 98 Room Air Intake & Output 01/02 1600 01/02 0800 01/02 0000 Intake Total 120 Output Total Balance 120 Intake, Oral 120 Physical Exam General Appearance: Alert, Oriented X3, Cooperative, No Acute Distress Cardiovascular: Regular Rate, Normal S1, Normal S2 Lungs: Clear to Auscultation Abdomen: Normal Bowel Sounds, Soft, No Tenderness Extremities: No Edema, Normal Pulses, No Tenderness/Swelling Current Medications: Current Medications Sig/Key Start time Last Medication Dose Route Stop Time Status Admin Acetaminophen 650 MG Q6P PRN 01/01 1315 AC PO Aspirin 81 MG DAILY 01/02 900 AC 01/02 PO 0830 Aspirin 81 MG ONCE ONE 01/01 1330 DC 01/01 PO 01/01 1331 1753 Cholecalciferol 2,000 IU DAILY 01/01 1325 AC 01/02 PO 0830 Enoxaparin Sodium 40 MG DAILY 01/02 09 AC 01/02 SC 0831 Meclizine HCl 12.5 MG TID 01/01 1425 AC 01/02 PO 0830 Rosuvastatin Calcium 5 MG DAILY 01/01 1330 AC 01/02 PO 0832 Sodium Chloride 1,000 ML BOLUS ONE 01/01 1045 DC 01/01 IV 01/01 1144 1047 Last 24 Hrs of Lab/Bib Results Last 24 Hrs of Labs/Mics: Laboratory Tests 01/02/18 0655: Troponin I < 0.01 01/02/18 0655: Anion Gap 11, Estimated GFR > 60, BUN/Creatinine Ratio 16.7, CBC w Diff NO MAN DIFF REQ, RBC 5.17, MCV 82.7, MCH 27.5, MCHC 33.3, RDW 14.1, MPV 9.1, Gran % 58.5, Lymphocytes % 33.8, Monocytes % 5.3, Eosinophils % 1.9, Basophils % 0.5, Absolute Granulocytes 4.5, Absolute Lymphocytes 2.6, Absolute Monocytes 0.4, Absolute Eosinophils 0.2, Absolute Basophils 0 Assessment/Plan Assessment: Patient is 72-year-old male with past medical history significant for hypertension, obstructive sleep apnea on CPAP, parathyroid adenoma status post right inferior parathyroidectomy, vertigo who presented to ED with chief complain of dizziness associated with nausea, diaphoresis this morning. Problem list: Vertigo Bradycardia Plan: Observe on telemetry floor Vitals every shift Continue meclizine Obtain Lyme titer Orthostatic measurement TSH Cardiac consultation - patient would like to speak to a salary and wage administrator. Echocardiogram PT evaluation Bedside swallowing evaluation was done Start diet heart healthy DVT prophylaxis Lovenox Code full Problem List: 1. Vertigo Pain Ratin Pain Location: no Pain Goal: Remain pain free Pain Plan: see a/p Tomorrow's Labs & Rationales: cbc, bep
[2018-01-02 15:10] VITALS: BP 120/70
--- NOTE | 2018-01-02 16:02 | ECHOCARDIOGRAM REPORT ---
SAM MOORE Age: 72 : 1945 Gender: M Exam Date: 01/02/2018 09:01 Exam Location: 1 [address] Ht (in): 67 Wt (lb): 185 BSA: 2.01 BP: 138 / 68 Ordering Physician: Gabriela Robbins MD Referring Physician: Mushtaq Lindquist MD Technologist: Estella Griffin [facility] Room Number: [id number] Indications: LIGHTHEADEDNESS Rhythm: Sinus Technical Quality: fair FINDINGS Left Ventricle Normal size left ventricle. Left ventricular wall thickness mildly increased. Normal left ventricular ejection fraction estimated at 60-65%. Right Ventricle Normal right ventricular size and function. Right Atrium Normal right atrial size. Left Atrium Mild left atrial dilatation. Mitral Valve Mild mitral annular calcification. Trace to mild mitral regurgitation. Aortic Valve Diffuse thickening (sclerosis) of the aortic valve cusps without reduced excursion. Tricuspid Valve Tricuspid valve is normal in structure and function. Trace to mild tricuspid regurgitation. Pulmonic Valve Pulmonic valve not well visualized, grossly normal. Pericardium No pericardial effusion. Great Vessels Normal size aortic root. CONCLUSIONS Normal left ventricular systolic function with mild concentric hypertrophy. Mild Left atrial enlargemenrt. No significant valvular abnormalities noted. Mushtaq Lindquist M.D. (Electronically Signed) Final Date: 02 January 2018 16:02 MEASUREMENTS (Male / Female) Normal Values 2D ECHO LV Diastolic Diameter PLAX 3.8 cm 4.2 - 5.9 / 3.9 - 5.3 cm LV Systolic Diameter PLAX 2.5 cm 2.1 - 4.0 cm LV Fractional Shortening PLAX 34.2 % 25 - 46 % LV Ejection Fraction 2D Teich 64.0 % IVS Diastolic Thickness 1.2 cm LVPW Diastolic Thickness 1.2 cm LV Relative Wall Thickness 0.6 RV Internal Dim ED PLAX 2.2 cm 1.9 - 3.8 cm LVOT Diameter 2.2 cm Aortic Root Diameter 3.4 cm LA Systolic Diameter LX 4.1 cm 3.0 - 4.0 / 2.7 - 3.8 cm LA Volume 30.0 cm 18 - 58 / 22 - 52 cm Ascending Aorta Diameter 3.7 cm DOPPLER AV Peak Velocity 128.0 cm/s AV Peak Gradient 6.6 mmHg AV Mean Velocity 86.1 cm/s AV Mean Gradient 3.0 mmHg AV Velocity Time Integral 26.0 cm LVOT Peak Velocity 108.0 cm/s LVOT Peak Gradient 4.7 mmHg LVOT Mean Velocity 69.8 cm/s LVOT Mean Gradient 2.0 mmHg LVOT Velocity Time Integral 23.5 cm LVOT Stroke Volume 89.3 cm AV Area Cont Eq vti 3.4 cm AV Area Cont Eq pk 3.2 cm MV Peak Velocity 79.3 cm/s MV Peak Gradient 2.5 mmHg MV Mean Velocity 45.8 cm/s MV Mean Gradient 1.0 mmHg Mitral E Point Velocity 67.6 cm/s Mitral A Point Velocity 63.7 cm/s Mitral E to A Ratio 1.1 MV PHT Velocity 77.4 cm/s MV Deceleration Allen 221.0 cm/s MV Pressure Half Time 105.1 ms MV Area PHT 2.1 cm MV Deceleration Time 272.0 ms PV Peak Velocity 108.0 cm/s PV Peak Gradient 4.7 mmHg PV Mean Velocity 73.3 cm/s PV Mean Gradient 2.0 mmHg PV Velocity Time Integral 27.8 cm LV E' Lateral Velocity 11.4 cm/s Mitral E to LV E' Lateral Ratio 5.9 LV E' Septal Velocity 9.0 cm/s Mitral E to LV E' Septal Ratio 7.5
--- NOTE | 2018-01-02 20:00 | PN- Cardiology ---
Subjective Subjective: No specific complaints. In SR on telemetry w/ HRs overnight in the 40-50 bpm range and today in the 50- 60 bpm range. Objective Vital Signs and I&Os Vital Signs Date Time Temp Pulse Resp B/P B/P Pulse O2 O2 Flow FiO2 Mean Ox Delivery Rate 01/02 1510 98.0 58 18 120/70 95 Room Air 01/02 0655 97.5 55 18 138/68 96 01/02 0027 53 95 01/01 2251 58 96 01/01 2202 97.6 51 18 148/76 94 Room Air 01/01 2000 55 120/70 Intake & Output 01/02 1600 01/02 0800 01/02 0000 01/01 1600 01/01 0800 01/01 0000 Intake Total 207 985 0594 Output Total Balance 102 316 2297 Intake, IV 1000 Intake, Oral 480 120 Patient 185 lb Weight Physical Exam: Well-developed, well-nourished elderly male no acute distress. Vital signs: See above. HEENT: Normocephalic, atraumatic, EOMI, slightly dry mucous membranes. Neck: No JVD, no bruits. Lungs: Clear to auscultation bilaterally. Heart: S1, S2 with a soft grade 1/6 systolic murmur. No gallop or rub. PMI fifth ICS MCL. Abdomen: Soft, nontender, positive bowel sounds. Extremities: No edema. Erythema posterior aspect left knee. Current Medications: Current Medications Sig/Key Start time Last Medication Dose Route Stop Time Status Admin Acetaminophen 650 MG Q6P PRN 01/01 1315 AC PO Aspirin 81 MG DAILY 01/02 900 AC 01/02 PO 0830 Cholecalciferol 2,000 IU DAILY 01/01 1325 AC 01/02 PO 0830 Enoxaparin Sodium 40 MG DAILY 01/02 09 AC 01/02 SC 0831 Meclizine HCl 12.5 MG TID 01/01 1425 AC 01/02 PO 1352 Rosuvastatin Calcium 5 MG DAILY 01/01 1330 AC 01/02 PO 0832 Results Last 48 Hrs of Labs/Mics: Laboratory Tests 01/02/18 0655: Troponin I < 0.01 01/02/18 0655: Anion Gap 11, Estimated GFR > 60, BUN/Creatinine Ratio 16.7, CBC w Diff NO MAN DIFF REQ, RBC 5.17, MCV 82.7, MCH 27.5, MCHC 33.3, RDW 14.1, MPV 9.1, Gran % 58.5, Lymphocytes % 33.8, Monocytes % 5.3, Eosinophils % 1.9, Basophils % 0.5, Absolute Granulocytes 4.5, Absolute Lymphocytes 2.6, Absolute Monocytes 0.4, Absolute Eosinophils 0.2, Absolute Basophils 0 01/01/18 0909: Anion Gap 9, Estimated GFR > 60, BUN/Creatinine Ratio 25.7 H, Glucose 163 H, Calcium 9.1, Magnesium 2.0, Total Bilirubin 0.6, AST 38, ALT 34, Alkaline Phosphatase 103, Troponin I < 0.01, Total Protein 6.5, Albumin 3.8, Globulin 2.7 , Albumin/Globulin Ratio 1.4, TSH 1.940, CBC w Diff NO MAN DIFF REQ, RBC 5.06, MCV 83.1, MCH 27.6, MCHC 33.2, RDW 14.1, MPV 9.0, Gran % 70.7, Lymphocytes % 22.3, Monocytes % 5.3, Eosinophils % 1.3, Basophils % 0.4, Absolute Granulocytes 4.7, Absolute Lymphocytes 1.5, Absolute Monocytes 0.3, Absolute Eosinophils 0.1, Absolute Basophils 0, ESR Westergren 1, Lyme Disease Antibody Pending Recent Imaging Studies: Echocardiogram 01/02/2018: Normal left ventricular systolic function with mild concentric hypertrophy. Mild Left atrial enlargemenrt. No significant valvular abnormalities noted. Assessment/Plan Assessment/Plan [id number] w/ hx HTN, HLD, KAE on CPAP, parathyroid adenoma s/p R inferior parathyroidectomy, & vertigo who presented to ED w/ c/o dizziness assoc w/ nausea, diaphoresis this a.m. w/ a history of recent tick bites and evidence of SB on telemetry in the ED & on his 12-lead ECG. On review of previous electrocardiograms, it was noted that on a preoperative ( cataract surgery) 12-lead ECG from 04/15/2007, Mr. Melendez was in SB w/ a HR of 48 bpm w/o any other changes. Reasonable to place on telemetry observation, but he has clearly had bradycardia in the past w/o assoc Sx. Reasonable to evaluate for other potential etiologies for his SB, which are typically divided into intrinsic and extrinsic causes. Intrinsic causes include : Idiopathic degenerative disorders of the conduction system, chronic ischemia, hypertensive heart disease, cardiomyopathy, inflammatory processes, collagen vascular disease, viral myocarditis, Lyme disease, neuromuscular disorders, and rarely familial sinus node dysfunction. Extrinsic causes typically include medications, underlying autonomically mediated conditions, hypothyroidism, intracranial hypertension, hyperkalemia, etc. Recommendations: * Continue on telemetry. * Echocardiogram results noted. * Continue present regimen. * Follow-up on pending blood work. * DVT prophylaxis. Continue telemetry? Yes
[2018-01-02 22:06] VITALS: BP 142/68
[2018-01-03 07:03] VITALS: BP 130/76
--- NOTE | 2018-01-03 07:03 | PN-Observation ---
Guillermo LAWSON,Caitlyn 01/03/18 0703: Observation Note Observation Note _ I have personally examined SAM MOORE. him disposition is uncertain at this time. Before a determination can be made, he requires continued observation for the following reasons [Diziness]. Assessment/Plan Medical Assessment: Patient is 72-year-old male with past medical history significant for hypertension, obstructive sleep apnea on CPAP, parathyroid adenoma status post right inferior parathyroidectomy, vertigo who presented to ED with chief complain of dizziness associated with nausea, diaphoresis this morning. Problem list: Vertigo Bradycardia Plan: Observe on telemetry floor Vitals every shift Continue meclizine Follow-up Lyme titer Orthostatic measurement Patient is a stable to be discharged home today Start diet heart healthy DVT prophylaxis Lovenox Code full Problem List: 1. Vertigo Subjective Follow-up For: Bradycardia, dizziness Tele-Events Since Last Visit: Sinus bradycardia 4070, no overnight events Subjective: No overnight events. Patient is very worried that his dizziness is related to his heart. He is requesting to speak to his chain maker hand Dr. Wood. Denies chest pain or shortness of breath. Review of Systems Constitutional: Reports: see HPI. Objective Last 24 Hrs of Vital Signs/I&O Vital Signs Date Time Temp Pulse Resp B/P B/P Pulse O2 O2 Flow FiO2 Mean Ox Delivery Rate 01/03 0703 99.5 64 20 130/76 96 Room Air 01/03 0312 58 95 01/03 0000 CPAP 01/02 2206 98.6 61 18 142/68 94 Room Air 01/02 2130 93 95 01/02 1510 98.0 58 18 120/70 95 Room Air Intake & Output 01/03 1600 01/03 0800 01/03 0000 Intake Total 400 Output Total Balance 400 Intake, Oral 400 Physical Exam General Appearance: Alert, Oriented X3, Cooperative, No Acute Distress Cardiovascular: Normal S1, Normal S2 Lungs: Clear to Auscultation Abdomen: Normal Bowel Sounds, Soft, No Tenderness Neurological: Normal Speech, Strength at 5/5 X4 Ext, Normal Tone, Sensation Intact Extremities: No Cyanosis, No Edema Andrea Waddell 01/03/18 1113: Observation Note Observation Note _ Problems: 1. Dizziness; likely related to her vertigo. Currently improved with meclizine. 2. Bradycardia; appears to be chronic. Does not appear related to his dizziness. 3. Hypertension Plan: -Echocardiogram with mild LVH. Patient apparently has had extensive workup for palpitations in the past including Holter monitoring. Follow up cardiology. Serial cardiac enzymes negative. -Continue meclizine for his vertigo. Follow physical therapy evalaution and possible discharge to home. Anticipate dc soon.
[2018-01-03 07:53] LABS: ABSOLUTE BASOPHIL COUNT 0 /CUMM (0.0-0.2); ABSOLUTE EOSINOPHIL COUNT 0.1 /CUMM (0.0-0.7); ABSOLUTE GRANULOCYTE CT 3.3 /CUMM (1.4-6.5); ABSOLUTE LYMPH COUNT 2.6 /CUMM (1.2-3.4); ABSOLUTE MONOCYTE COUNT 0.3 /CUMM (0.10-0.60); BASOPHIL % 0.6 % (0.0-2.0); EOSINOPHIL % 1.8 % (0-5); GRANULOCYTE % 51.8 % (42.2-75.2); HEMATOCRIT 41.3 % (42-52); MEAN CORPUSCULAR HGB 27.5 PG (27.0-31.0); MEAN CORPUSCULAR VOLUME 83.2 FL (80.0-94.0); PLATELET COUNT 184 /CUMM (130-400); RBC DISTRIBUTION WIDTH 14.1 % (11.5-14.5); RED BLOOD CELL CT 4.96 /CUMM (4.70-6.10); WHITE BLOOD CELL COUNT 6.4 /CUMM (4.8-10.8)
--- NOTE | 2018-01-03 11:26 | PN- Cardiology ---
Subjective Subjective: Patient feels well today but still has some dizziness when he moves his head. No chest pain or palpitations. Objective Vital Signs and I&Os Vital Signs Date Time Temp Pulse Resp B/P B/P Pulse O2 O2 Flow FiO2 Mean Ox Delivery Rate 01/03 0703 99.5 64 20 130/76 96 Room Air 01/03 0312 58 95 / 0000 CPAP 01/02 2206 98.6 61 18 142/68 94 Room Air 01/02 2130 93 95 01/02 1510 98.0 58 18 120/70 95 Room Air Intake & Output 01/03 1600 01/03 0800 01/03 0000 01/02 1600 01/02 0800 01/02 0000 Intake Total 400 480 120 Output Total Balance 400 480 120 Intake, Oral 400 480 120 Physical Exam: General: no apparent distress. Alert. Eyes: No obvious scleral icterus. HEENT: No jugular venous distention or abnormal jugular venous pulsations. Cardiovascular: Normal intensity S1/S2. Regular Respiratory: Lungs clear to auscultation bilaterally. Abdomen: Soft, nontender with no guarding or rebound tenderness. Musculoskeletal: No clubbing or cyanosis noted Skin: warm Neurologic: No gross focal deficits noted. Current Medications: Current Medications Sig/Key Start time Last Medication Dose Route Stop Time Status Admin Acetaminophen 650 MG Q6P PRN 01/01 1315 AC PO Aspirin 81 MG DAILY 01/02 0900 AC 01/03 PO 0839 Cholecalciferol 2,000 IU DAILY 01/01 1325 AC 01/03 PO 0839 Enoxaparin Sodium 40 MG DAILY 01/02 0900 AC 01/03 SC 0841 Meclizine HCl 12.5 MG TID 01/01 1425 AC 01/03 PO 0839 Rosuvastatin Calcium 5 MG DAILY 01/01 1330 AC 01/03 PO 0850 Results Last 48 Hrs of Labs/Mics: Laboratory Tests 01/03/18 0620: Anion Gap 11, Estimated GFR > 60, BUN/Creatinine Ratio 22.5, CBC w Diff NO MAN DIFF REQ, RBC 4.96, MCV 83.2, MCH 27.5, MCHC 33.0, RDW 14.1, MPV 9.0, Gran % 51.8, Lymphocytes % 40.7, Monocytes % 5.1, Eosinophils % 1.8, Basophils % 0.6, Absolute Granulocytes 3.3, Absolute Lymphocytes 2.6, Absolute Monocytes 0.3, Absolute Eosinophils 0.1, Absolute Basophils 0 01/02/18 0655: Troponin I < 0.01 01/02/18 0655: Anion Gap 11, Estimated GFR > 60, BUN/Creatinine Ratio 16.7, CBC w Diff NO MAN DIFF REQ, RBC 5.17, MCV 82.7, MCH 27.5, MCHC 33.3, RDW 14.1, MPV 9.1, Gran % 58.5, Lymphocytes % 33.8, Monocytes % 5.3, Eosinophils % 1.9, Basophils % 0.5, Absolute Granulocytes 4.5, Absolute Lymphocytes 2.6, Absolute Monocytes 0.4, Absolute Eosinophils 0.2, Absolute Basophils 0 Recent Imaging Studies: Telemetry tracings were personally reviewed and show sinus rhythm and mild sinus bradycardia with no evidence of advanced heart block or prolonged pauses Echocardiogram Normal left ventricular systolic function with mild concentric hypertrophy. Mild Left atrial enlargemenrt. No significant valvular abnormalities noted. Mushtaq Lindquist M.D. (Electronically Signed) Final Date: 02 January 2018 16:02 Assessment/Plan Assessment/Plan 1. Vertigo 2. Mild sinus bradycardia with no evidence of high-grade AV block or prolonged pauses on telemetry 3. History of hyperlipidemia 4. Recent tick bite per report 5. History of hypertension The patient is feeling better and still reports some mild dizziness which appears to be associated with changes in head position. He has had evidence of asymptomatic sinus bradycardia in the past and telemetry shows no evidence of high-grade heart block or prolonged pauses on telemetry. He is not on AV bharathi blockers and his outpatient ARB can be resumed. Agree with testing for Lyme but his current presentation/timing is not consistent with Lyme carditis. He should follow-up with our office on discharge and may be a candidate for additional noninvasive cardiac testing as an outpatient. There is no clear indication for inpatient permanent pacemaker placement at this time. Ananda Pérez MD [facility] Continue telemetry? No
[2018-01-03] MEDS ORDERED: ASPIRIN81 M4 PO (11:40)
--- NOTE | 2018-01-03 11:42 | Patient Discharge Instructions ---
Discharge Instructions General Discharge Information You were seen/treated for: Dizziness Special Instructions: 1please follow-up with your PCP in 1 week discharge 2please follow-up with your hospital intern in 1 week of discharge 3-please follow up with physical therapy after discharge for vertigo Diet Continue normal diet: No Recommended Diet: Heart Healthy Acute Coronary Syndrome Inclusion Criteria At DC or during hospital stay patient has or had the following: ACS DIAGNOSIS No Discharge Core Measures Meds if any: Prescribed or Continued at Discharge Meds if any: NOT Prescribed or Continued at Discharge Congestive Heart Failure Inclusion Criteria At DC or during hospital stay patient has or had the following: CHF DIAGNOSIS No Discharge Core Measures Meds if any: Prescribed or Continued at Discharge Meds if any: NOT Prescribed or Continued at Discharge Cerebrovascular accident Inclusion Criteria At DC or during hospital stay patient has or had the following: CVA/TIA Diagnosis No Discharge Core Measures Meds if any: Prescribed or Continued at Discharge Meds if any: NOT Prescribed or Continued at Discharge Venous thromboembolism Inclusion Criteria VTE Diagnosis No VTE Type NONE VTE Confirmed by (Test) NONE Discharge Core Measures - Per Current guidelines, there needs to be overlap - treatment for the first 5 days of Warfarin therapy. - If discharged on Warfarin prior to 5 days of - overlap therapy, the patient will need to be - assessed for post discharge needs including - *Post discharge parental anticoagulation - *Warfarin and/or parental anticoagulation education - *Follow up date to check INR post discharge At least 5 days overlap therapy as Inpatient No Meds if any: Prescribed or Continued at Discharge Note: Overlap Therapy is Warfarin and Anticoagulant Meds if any: NOT Prescribed or Continued at Discharge
[2018-01-03] MEDS ORDERED: MECLIZINE HCL12.5 M1 PO (16:46)
== END 2018-01-03 14:46 ==
LOC: ERH 08:24 → 1NO 11:38 → ERHI 11:38 → ENRESERV 11:59 → ENTRNSPT 13:01 → EDTRNSPT 13:12 → EDTRNSPTSTS 13:12 → 1NO 13:17 → CMPTRNSPT 13:27 → 1NO 01-03 08:43 → ENPENDDIS 01-03 13:35 → 1NO 01-03 14:46
PROVIDERS: Emergency Medicine; Internal Medicine; Student in an Organized Health Care Education/Training Program
DX: R42 Dizziness and giddiness (principal); R00.1 Bradycardia, unspecified; R11.0 Nausea; R61 Generalized hyperhidrosis; I10 Essential (primary) hypertension; G47.33 Obstructive sleep apnea (adult) (pediatric)
CPT/HCPCS: 1288; 86618; 36592; 82436; 93005; 93010; 93306; 96360; 96372; 97116-GP; 97161-GP; G0378; G8978-GP; G8979-GP; J1650; J3101; J3490